=== PATIENT | female | born 1945 | race Caucasian/White ===

== ENCOUNTER 2018-03-24 13:36 | Inpatient (IN) | payer MEDICAID ==
[~2018-03-24] VITALS: Ht 162.6 cm; Wt 81.6 kg
[2018-03-24] MEDS ORDERED: ACETAMINOPHEN 325MG TABLET PO ONE (14:45)
[2018-03-24] MEDS ORDERED: MORPHINE SULFATE 4 MG/ML CPJ (NOT FOR IM USE) IV ONE (16:45)
[2018-03-24 17:37] LABS: CHLORIDE 103 mEq/L (98-107); HEMOGLOBIN. 7.3 g/dL (12.0-16.0); MEAN CORPUSCULAR HEMOGLOBIN 29.7 pg (28.0-32.0); MEAN CORPUSCULAR VOLUME 89.6 fL (81.0-99.0); MEAN PLATELET VOLUME 7.3 fl (7.4-10.4); PLATELET 269 x1000/uL (130-400); PROTHROMBIN TIME 10.5 sec (9.1-11.1); RED BLOOD CELL COUNT 2.46 mill/uL (4.2-5.4); RED CELL DISTRIBUTION WIDTH 14.5 % (11.6-14.6)
[2018-03-24 17:52] LABS: PLATELET ESTIMATE NORMAL
[2018-03-24] MEDS ORDERED: IPRATROPIUM/ALBUTEROL 0.5-3(2.5)MG/3ML NEB INH PRN (18:45)
[2018-03-24] MEDS ORDERED: MORPHINE SULFATE 2 MG/ML CPJ (NOT FOR IM USE) IV PRN (18:45)
[2018-03-24] MEDS ORDERED: GUAIFENESIN 200MG/10ML SUGAR FREE UDC PO PRN (18:45)
[2018-03-24] MEDS ORDERED: NA PHOS,M-B/NA PHOS,DI-BA ENEMA 118ML PR PRN (18:45)
[2018-03-24] MEDS ORDERED: TRAMADOL 50MG TABLET PO PRN (18:45)
[2018-03-24] MEDS ORDERED: DEXTROSE 50% WATER 50ML SYRINGE IV PRN (18:45)
[2018-03-24] MEDS ORDERED: ONDANSETRON HCL 4MG/2ML INJ IV PRN (18:45)
[2018-03-24] MEDS ORDERED: MAGNESIUM/ALUMINUM HYDROXIDE/SIMETHICONE 30ML UDC PO PRN (18:45)
[2018-03-24] MEDS ORDERED: SODIUM POLYSTYRENE SULFONATE 15 G/60 ML BOT PO NR (18:45)
[2018-03-24] MEDS ORDERED: DOCUSATE SODIUM 100MG CAPSULE PO PRN (18:45)
[2018-03-24 19:31] LABS: FOLIC ACID (FOLATE) SERUM 10.5 ng/mL (>5.38)
[2018-03-24 20:00] VITALS: BP 167/49
[2018-03-24] MEDS ORDERED: ZOLPIDEM TARTRATE 5MG TABLET PO PRN (21:00)
[2018-03-24] MEDS ORDERED: ENOXAPARIN 30MG/0.3ML SYR SUBCUT SCH (21:00)
[2018-03-24] MEDS: BLOOD SUGAR DIAGNOSTIC STRIP TEST SCH (21:00)
[2018-03-24 22:00] VITALS: BP 175/87
[2018-03-24] MEDS: METOPROLOL TARTRATE 25MG TABLET PO SCH (22:22)
[2018-03-24] MEDS: INSULIN LISPRO 100 UNITS/ML SUBCUT SCH (22:34)
[2018-03-25] VITALS (10 sets, daily range): BP systolic 126–163; BP diastolic 36–63
[2018-03-25] MEDS: LORAZEPAM 0.5MG TABLET PO PRN
[2018-03-25] MEDS: MORPHINE SULFATE 4 MG/ML CPJ (NOT FOR IM USE) IV PRN ×2 (00:20→06:37)
[2018-03-25] MEDS: PANTOPRAZOLE SODIUM 40 MG/VIAL IV SCH ×2 (06:40→17:00)
[2018-03-25] MEDS: BLOOD SUGAR DIAGNOSTIC STRIP TEST SCH ×4 (06:41→20:37)
[2018-03-25] MEDS: INSULIN LISPRO 100 UNITS/ML SUBCUT SCH ×4 (06:41→20:39)
[2018-03-25] MEDS ORDERED: PNEUMOCOCCAL 23-VAL P-SAC VAC 0.5 ML IM ONE (08:00)
[2018-03-25] MEDS: METOPROLOL TARTRATE 25MG TABLET PO SCH ×2 (09:00→20:36)
[2018-03-25] MEDS: FUROSEMIDE 20MG TABLET PO SCH ×2 (09:00→20:37)
[2018-03-25] MEDS ORDERED: INFLUENZA VIRUS VACCINE 0.5ML SYR IM ONE (10:00)
[2018-03-25] MEDS ORDERED: DOCU-150 MT (11:26)
[2018-03-25] MEDS ORDERED: GABA-531 PO (11:26)
[2018-03-25] MEDS ORDERED: BUME1TAB4 MT (11:26)
[2018-03-25] MEDS ORDERED: CHOL100062 MT (11:26)
[2018-03-25] MEDS ORDERED: AMLO10TA80 MT (11:26)
[2018-03-25] MEDS ORDERED: FERR325T6 MT (11:26)
[2018-03-25] MEDS ORDERED: LEVO75TA7 MT (11:26)
[2018-03-25] MEDS ORDERED: MELA5TAB19 MT (11:26)
[2018-03-25] MEDS ORDERED: ALLO100T MT (11:26)
[2018-03-25] MEDS ORDERED: LOSA50TA20 MT (11:26)
[2018-03-25] MEDS ORDERED: SIMV20TA6 MT (11:26)
[2018-03-25] MEDS ORDERED: HYDR-4135 MT (11:26)
[2018-03-25] MEDS ORDERED: CLON0.1T14 MT (11:26)
[2018-03-25] MEDS ORDERED: CITA10TA9 MT (11:26)
[2018-03-25 12:27] LABS: BASOPHILS % 0.4 % (0.0-2.0); EOSINOPHILS % 0.3 % (0.0-5.0); LYMPHOCYTES % 9.1 % (20.0-50.0); MEAN CORPUSCULAR HEMOGLOBIN 30.1 pg (28.0-32.0); MEAN PLATELET VOLUME 7.3 fl (7.4-10.4); MONOCYTES % 6.7 % (2.0-8.0); NEUTROPHILS % 83.5 % (40.0-76.0); PLATELET 245 x1000/uL (130-400); RED BLOOD CELL COUNT 2.09 mill/uL (4.2-5.4); RED CELL DISTRIBUTION WIDTH 14.7 % (11.6-14.6)
[2018-03-25 12:31] LABS: HEMATOCRIT. 18.8 % (36.0-48.0); HEMOGLOBIN. 6.3 g/dL (12.0-16.0)
[2018-03-25 12:36] LABS: CHLORIDE 105 mEq/L (98-107)
[2018-03-25] MEDS: CLONIDINE 0.1MG TABLET PO PRN (17:21)
[2018-03-25] MEDS: ENOXAPARIN 40MG/0.4ML SYR SUBCUT SCH (20:36)
[2018-03-25 22:16] LABS: HEMOGLOBIN 7.6 g/dL (12.0-16.0)
[2018-03-26] VITALS (7 sets, daily range): BP systolic 113–189; BP diastolic 47–76
[2018-03-26] MEDS: PANTOPRAZOLE SODIUM 40 MG/VIAL IV SCH ×2 (06:00→17:50)
[2018-03-26] MEDS: BLOOD SUGAR DIAGNOSTIC STRIP TEST SCH ×4 (06:37→20:26)
[2018-03-26] MEDS: FUROSEMIDE 20MG TABLET PO SCH ×2 (09:05→20:21)
[2018-03-26] MEDS: METOPROLOL TARTRATE 25MG TABLET PO SCH ×2 (09:05→20:22)
[2018-03-26] MEDS: LORAZEPAM 0.5MG TABLET PO PRN (09:11)
[2018-03-26] MEDS: INSULIN LISPRO 100 UNITS/ML SUBCUT SCH ×4 (09:17→20:26)
[2018-03-26] MEDS: CLONIDINE 0.1MG TABLET PO PRN (14:53)
[2018-03-26] MEDS: ENOXAPARIN 40MG/0.4ML SYR SUBCUT SCH (20:22)
[2018-03-27] VITALS (7 sets, daily range): BP systolic 152–179; BP diastolic 45–55
[2018-03-27] MEDS: PANTOPRAZOLE SODIUM 40 MG/VIAL IV SCH ×2 (06:00→17:41)
[2018-03-27] MEDS: BLOOD SUGAR DIAGNOSTIC STRIP TEST SCH ×4 (06:42→21:00)
[2018-03-27] MEDS: INSULIN LISPRO 100 UNITS/ML SUBCUT SCH ×4 (07:50→21:00)
[2018-03-27] MEDS: METOPROLOL TARTRATE 25MG TABLET PO SCH ×2 (09:00→20:44)
[2018-03-27] MEDS: FUROSEMIDE 20MG TABLET PO SCH ×2 (09:00→20:44)
[2018-03-27] MEDS: ACETAMINOPHEN 325MG TABLET PO PRN (09:38)
[2018-03-27 10:25] LABS: MEAN CORPUSCULAR HEMOGLOBIN 29.9 pg (28.0-32.0); MEAN CORPUSCULAR VOLUME 90.1 fL (81.0-99.0); PLATELET 235 x1000/uL (130-400); RED BLOOD CELL COUNT 2.09 mill/uL (4.2-5.4); RED CELL DISTRIBUTION WIDTH 14.7 % (11.6-14.6)
[2018-03-27 10:30] LABS: HEMATOCRIT 18.8 % (36.0-48.0); HEMOGLOBIN 6.2 g/dL (12.0-16.0)
[2018-03-27 10:33] LABS: PROTHROMBIN TIME 10.4 sec (9.1-11.1)
[2018-03-27 10:38] LABS: CHLORIDE 106 mEq/L (98-107)
[2018-03-27] MEDS ORDERED: ACETAMINOPHEN 650MG SUPP PR PRN ×2 (13:45→14:00)
[2018-03-27] MEDS: ENOXAPARIN 40MG/0.4ML SYR SUBCUT SCH (21:00)
[2018-03-27] MEDS: CLONIDINE 0.1MG TABLET PO PRN (23:10)
[2018-03-27] MEDS: MORPHINE SULFATE 4 MG/ML CPJ (NOT FOR IM USE) IV PRN (23:11)
[2018-03-28] VITALS (12 sets, daily range): BP systolic 118–188; BP diastolic 42–87
[2018-03-28] MEDS: BLOOD SUGAR DIAGNOSTIC STRIP TEST SCH ×4 (07:20→21:12)
[2018-03-28] MEDS: INSULIN LISPRO 100 UNITS/ML SUBCUT SCH ×4 (07:50→21:00)
[2018-03-28] MEDS: CLONIDINE 0.1MG TABLET PO PRN ×2 (08:30→23:47)
[2018-03-28] MEDS: METOPROLOL TARTRATE 25MG TABLET PO SCH ×2 (09:00→20:50)
[2018-03-28] MEDS: FUROSEMIDE 20MG TABLET PO SCH ×3 (09:00→20:51)
[2018-03-28] MEDS: NITROGLYCERIN 0.4MG/HR PATCH TOP SCH (10:17)
[2018-03-28] MEDS: MORPHINE SULFATE 4 MG/ML CPJ (NOT FOR IM USE) IV PRN (11:56)
[2018-03-28] MEDS: PANTOPRAZOLE SODIUM 40 MG/VIAL IV SCH ×2 (12:08→20:55)
[2018-03-28 13:14] LABS: HEMOGLOBIN 9.3 g/dL (12.0-16.0)
[2018-03-28] MEDS: ENOXAPARIN 40MG/0.4ML SYR SUBCUT SCH (20:54)
[2018-03-29] VITALS: BP 162/65
[2018-03-29 04:00] VITALS: BP 175/66
[2018-03-29] MEDS: PANTOPRAZOLE SODIUM 40 MG/VIAL IV SCH ×2 (06:31→17:51)
[2018-03-29] MEDS: CLONIDINE 0.1MG TABLET PO PRN (06:31)
[2018-03-29] MEDS: BLOOD SUGAR DIAGNOSTIC STRIP TEST SCH ×4 (06:32→21:00)
[2018-03-29] MEDS: INSULIN LISPRO 100 UNITS/ML SUBCUT SCH ×4 (07:50→21:00)
[2018-03-29 08:00] VITALS: BP 173/53
[2018-03-29] MEDS: METOPROLOL TARTRATE 25MG TABLET PO SCH ×2 (08:37→22:30)
[2018-03-29] MEDS: NITROGLYCERIN 0.4MG/HR PATCH TOP SCH (09:06)
[2018-03-29] MEDS: FUROSEMIDE 20MG TABLET PO SCH ×2 (11:27→22:30)
[2018-03-29] MEDS: HYDRALAZINE HCL 50MG TABLET PO SCH ×2 (11:28→22:29)
[2018-03-29 12:00] VITALS: BP 167/55
[2018-03-29] MEDS ORDERED: HYDRALAZINE HCL 50MG TABLET PO SCH (14:00)
[2018-03-29] MEDS ORDERED: VANCOMYCIN HCL 500 MG/VIAL ONE ×2 (15:57→16:38)
[2018-03-29 16:00] VITALS: BP 146/53
[2018-03-29 20:00] VITALS: BP 170/48
[2018-03-29] MEDS: ENOXAPARIN 40MG/0.4ML SYR SUBCUT SCH (22:32)
[2018-03-30] VITALS: BP 129/48
[2018-03-30 04:00] VITALS: BP 162/52
[2018-03-30] MEDS: PANTOPRAZOLE SODIUM 40 MG/VIAL IV SCH ×2 (06:00→18:35)
[2018-03-30] MEDS: HYDRALAZINE HCL 50MG TABLET PO SCH ×3 (06:15→20:47)
[2018-03-30] MEDS: BLOOD SUGAR DIAGNOSTIC STRIP TEST SCH ×3 (06:20→17:49)
[2018-03-30] MEDS: INSULIN LISPRO 100 UNITS/ML SUBCUT SCH ×3 (07:50→17:50)
[2018-03-30 08:00] VITALS: BP 165/57
[2018-03-30] MEDS: METOPROLOL TARTRATE 25MG TABLET PO SCH ×2 (08:54→20:47)
[2018-03-30] MEDS: NITROGLYCERIN 0.4MG/HR PATCH TOP SCH (09:01)
[2018-03-30] MEDS: FUROSEMIDE 20MG TABLET PO SCH ×2 (09:01→20:47)
[2018-03-30 09:08] LABS: BASOPHILS % 0.7 % (0.0-2.0); EOSINOPHILS % 1.6 % (0.0-5.0); HEMATOCRIT. 25.9 % (36.0-48.0); HEMOGLOBIN. 8.9 g/dL (12.0-16.0); LYMPHOCYTES % 10.4 % (20.0-50.0); MEAN CORPUSCULAR HEMOGLOBIN 30.1 pg (28.0-32.0); MEAN CORPUSCULAR VOLUME 87.8 fL (81.0-99.0); MEAN PLATELET VOLUME 6.9 fl (7.4-10.4); MONOCYTES % 6.4 % (2.0-8.0); NEUTROPHILS % 80.9 % (40.0-76.0); PLATELET 269 x1000/uL (130-400); RED BLOOD CELL COUNT 2.94 mill/uL (4.2-5.4)
[2018-03-30 09:26] LABS: CHLORIDE 103 mEq/L (98-107)
[2018-03-30 12:00] VITALS: BP 161/62
[2018-03-30 16:00] VITALS: BP 143/52
[2018-03-30 20:00] VITALS: BP 166/49
[2018-03-30] MEDS: ENOXAPARIN 40MG/0.4ML SYR SUBCUT SCH (20:46)
[2018-03-30] MEDS: ZOLPIDEM TARTRATE 5MG TABLET PO PRN (20:47)
[2018-03-31] VITALS: BP 151/52
[2018-03-31 04:00] VITALS: BP 162/50
[2018-03-31] MEDS: HYDRALAZINE HCL 50MG TABLET PO SCH ×3 (06:02→22:06)
[2018-03-31] MEDS: PANTOPRAZOLE SODIUM 40 MG/VIAL IV SCH ×2 (06:02→18:40)
[2018-03-31] MEDS: BLOOD SUGAR DIAGNOSTIC STRIP TEST SCH ×4 (06:20→21:00)
[2018-03-31 07:02] LABS: BASOPHILS % 0.4 % (0.0-2.0); EOSINOPHILS % 2.7 % (0.0-5.0); HEMATOCRIT. 25.5 % (36.0-48.0); HEMOGLOBIN. 8.8 g/dL (12.0-16.0); LYMPHOCYTES % 12.8 % (20.0-50.0); MEAN CORPUSCULAR HEMOGLOBIN 30.1 pg (28.0-32.0); MEAN CORPUSCULAR VOLUME 87.8 fL (81.0-99.0); MEAN PLATELET VOLUME 7.1 fl (7.4-10.4); MONOCYTES % 8.6 % (2.0-8.0); NEUTROPHILS % 75.5 % (40.0-76.0); PLATELET 286 x1000/uL (130-400); RED BLOOD CELL COUNT 2.91 mill/uL (4.2-5.4); RED CELL DISTRIBUTION WIDTH 15.5 % (11.6-14.6)
[2018-03-31] MEDS: INSULIN LISPRO 100 UNITS/ML SUBCUT SCH ×4 (07:32→22:08)
[2018-03-31] MEDS ORDERED: BACITRACIN 50,000 UNITS/VIAL ONE (07:44)
[2018-03-31] MEDS ORDERED: NORMAL SALINE 0.9% 10 ML SYR ONE (07:44)
[2018-03-31] MEDS ORDERED: VANCOMYCIN HCL 500 MG/VIAL ONE (07:44)
[2018-03-31 08:00] VITALS: BP 142/52
[2018-03-31] MEDS: FUROSEMIDE 20MG TABLET PO SCH ×2 (08:45→20:56)
[2018-03-31] MEDS: NITROGLYCERIN 0.4MG/HR PATCH TOP SCH (08:45)
[2018-03-31] MEDS: METOPROLOL TARTRATE 25MG TABLET PO SCH ×2 (08:45→20:55)
[2018-03-31] MEDS ORDERED: ROCURONIUM BROMIDE 10MG/ML VIAL 5ML IV ONE (08:54)
[2018-03-31] MEDS ORDERED: FENTANYL CITRATE/PF 50MCG/ML 5ML VIAL ONE (08:55)
[2018-03-31] MEDS ORDERED: MIDAZOLAM HCL 2 MG/2 ML VIAL ONE (08:55)
[2018-03-31] MEDS ORDERED: ETOMIDATE 2MG/ML 10ML VIAL IV ONE (08:55)
[2018-03-31] MEDS ORDERED: CEFAZOLIN SODIUM 1000MG/VIAL ONE (08:55)
[2018-03-31] MEDS ORDERED: EPHEDRINE SULFATE 50MG/ML VIAL ONE (09:35)
[2018-03-31] MEDS ORDERED: ONDANSETRON HCL 4MG/2ML INJ IV PRN (10:15)
[2018-03-31] MEDS ORDERED: FENTANYL CITRATE/PF 50MCG/ML 2ML VIAL IV PRN (10:15)
[2018-03-31] MEDS ORDERED: GLYCOPYRROLATE 0.2 MG/ML 2ML VIAL ONE (11:09)
[2018-03-31] MEDS ORDERED: PHENYLEPHRINE HCL 10 MG/ML 1ML (IV VIAL) IV ONE (11:09)
[2018-03-31] MEDS ORDERED: NEOSTIGMINE METHYLSULFATE 1MG/ML 10 ML VIAL ONE (11:10)
[2018-03-31] MEDS ORDERED: FENTANYL CITRATE/PF 50MCG/ML 2ML VIAL ONE ×2 (11:11→11:20)
[2018-03-31 12:00] VITALS: BP 140/60
[2018-03-31 16:00] VITALS: BP 152/51
[2018-03-31] MEDS: CEFAZOLIN 1000MG PREMIX 50 ML IV SCH (16:35)
[2018-03-31 20:00] VITALS: BP 121/49
[2018-03-31] MEDS: ENOXAPARIN 40MG/0.4ML SYR SUBCUT SCH (20:56)
[2018-03-31] MEDS: ZOLPIDEM TARTRATE 5MG TABLET PO PRN (22:06)
[2018-04-01] VITALS (8 sets, daily range): BP systolic 103–139; BP diastolic 33–51
[2018-04-01] MEDS: CEFAZOLIN 1000MG PREMIX 50 ML IV SCH (00:42)
[2018-04-01] MEDS: ACETAMINOPHEN 325MG TABLET PO PRN (06:39)
[2018-04-01] MEDS: PANTOPRAZOLE SODIUM 40 MG/VIAL IV SCH ×2 (06:40→17:40)
[2018-04-01] MEDS: HYDRALAZINE HCL 50MG TABLET PO SCH ×3 (06:40→21:40)
[2018-04-01] MEDS: BLOOD SUGAR DIAGNOSTIC STRIP TEST SCH ×4 (07:18→20:48)
[2018-04-01] MEDS: FUROSEMIDE 20MG TABLET PO SCH ×2 (08:28→20:47)
[2018-04-01] MEDS: NITROGLYCERIN 0.4MG/HR PATCH TOP SCH (08:28)
[2018-04-01] MEDS: METOPROLOL TARTRATE 25MG TABLET PO SCH ×2 (08:28→20:48)
[2018-04-01] MEDS: INSULIN LISPRO 100 UNITS/ML SUBCUT SCH ×4 (08:32→20:43)
[2018-04-01 11:48] LABS: MEAN CORPUSCULAR HEMOGLOBIN 29.8 pg (28.0-32.0); MEAN PLATELET VOLUME 7.4 fl (7.4-10.4); PLATELET 244 x1000/uL (130-400); RED BLOOD CELL COUNT 2.13 mill/uL (4.2-5.4); RED CELL DISTRIBUTION WIDTH 15.5 % (11.6-14.6)
[2018-04-01 11:57] LABS: HEMATOCRIT. 18.7 % (36.0-48.0); HEMOGLOBIN. 6.3 g/dL (12.0-16.0)
[2018-04-01 12:54] LABS: HEMATOCRIT 18.7 % (36.0-48.0); HEMOGLOBIN 6.4 g/dL (12.0-16.0)
[2018-04-01 12:59] LABS: PLATELET ESTIMATE NORMAL
[2018-04-01] MEDS: ENOXAPARIN 40MG/0.4ML SYR SUBCUT SCH (20:49)
[2018-04-01 21:47] LABS: HEMATOCRIT 21.2 % (36.0-48.0); HEMOGLOBIN 7.2 g/dL (12.0-16.0)
[2018-04-01 21:51] LABS: INR 1.1; PROTHROMBIN TIME 10.7 sec (9.1-11.1)
[2018-04-02] VITALS (10 sets, daily range): BP systolic 106–168; BP diastolic 42–57
[2018-04-02] MEDS: ZOLPIDEM TARTRATE 5MG TABLET PO PRN ×2 (00:08→20:40)
[2018-04-02] MEDS: PANTOPRAZOLE SODIUM 40 MG/VIAL IV SCH ×2 (05:16→17:04)
[2018-04-02] MEDS: HYDRALAZINE HCL 50MG TABLET PO SCH ×3 (05:16→21:13)
[2018-04-02] MEDS: CLONIDINE 0.1MG TABLET PO PRN (05:17)
[2018-04-02] MEDS: BLOOD SUGAR DIAGNOSTIC STRIP TEST SCH ×4 (06:22→20:56)
[2018-04-02] MEDS: INSULIN LISPRO 100 UNITS/ML SUBCUT SCH ×4 (07:28→20:56)
[2018-04-02 07:38] LABS: HEMOGLOBIN 8.2 g/dL (12.0-16.0)
[2018-04-02 07:50] LABS: PROTHROMBIN TIME 10.1 sec (9.1-11.1)
[2018-04-02] MEDS: FUROSEMIDE 20MG TABLET PO SCH ×2 (08:22→20:40)
[2018-04-02] MEDS: METOPROLOL TARTRATE 25MG TABLET PO SCH ×2 (08:22→20:40)
[2018-04-02] MEDS: NITROGLYCERIN 0.4MG/HR PATCH TOP SCH (08:24)
[2018-04-02] MEDS: ACETAMINOPHEN 325MG TABLET PO PRN (16:05)
[2018-04-02] MEDS: ENOXAPARIN 40MG/0.4ML SYR SUBCUT SCH (20:40)
[2018-04-03] VITALS: BP 146/48
[2018-04-03 04:00] VITALS: BP 130/47
[2018-04-03] MEDS: BLOOD SUGAR DIAGNOSTIC STRIP TEST SCH ×3 (06:03→16:26)
[2018-04-03] MEDS: PANTOPRAZOLE SODIUM 40 MG/VIAL IV SCH ×2 (06:03→17:10)
[2018-04-03] MEDS: HYDRALAZINE HCL 50MG TABLET PO SCH ×2 (06:03→13:56)
[2018-04-03] MEDS: INSULIN LISPRO 100 UNITS/ML SUBCUT SCH ×3 (06:27→17:10)
[2018-04-03 08:00] VITALS: BP 144/54
[2018-04-03] MEDS: FUROSEMIDE 20MG TABLET PO SCH (09:14)
[2018-04-03] MEDS: METOPROLOL TARTRATE 25MG TABLET PO SCH (09:14)
[2018-04-03] MEDS: NITROGLYCERIN 0.4MG/HR PATCH TOP SCH (09:14)
[2018-04-03] MEDS: ACETAMINOPHEN 325MG TABLET PO PRN (10:16)
[2018-04-03 12:00] VITALS: BP 138/57
[2018-04-03 16:00] VITALS: BP 144/44
[2018-04-03 17:48] VITALS: BP 144/44
== END 2018-04-03 20:00 | DRG 308 ==
LOC: ER 13:36 → 6EST 17:33 → ENRESERV 19:08 → EDBEDREQ 20:48 → EDBEDREQTM 20:49
PROVIDERS: ADMIT Internal Medicine; ATTEND Internal Medicine
PROC: 30233N1 Transfusion of Nonautologous Red Blood Cells into Peripheral Vein, Percutaneous Approach (ICD-10-PCS; 2018-03-25)
PROC: 0QSB04Z Reposition Right Lower Femur with Internal Fixation Device, Open Approach (ICD-10-PCS; principal; 2018-03-31 08:30)
DX: S72.341A Displaced spiral fracture of shaft of right femur, initial encounter for closed fracture (principal); N17.0 Acute kidney failure with tubular necrosis; E43 Unspecified severe protein-calorie malnutrition; I11.9 Hypertensive heart disease without heart failure; E87.5 Hyperkalemia; E83.51 Hypocalcemia; D62 Acute posthemorrhagic anemia; E11.9 Type 2 diabetes mellitus without complications; I35.0 Nonrheumatic aortic (valve) stenosis; I45.10 Unspecified right bundle-branch block; M21.00 Valgus deformity, not elsewhere classified, unspecified site; Z53.8 Procedure and treatment not carried out for other reasons; Z79.4 Long term (current) use of insulin; W01.0XXA Fall on same level from slipping, tripping and stumbling without subsequent striking against object, initial encounter; Y93.89 Activity, other specified; Y92.89 Other specified places as the place of occurrence of the external cause; Y99.8 Other external cause status
CPT/HCPCS: 36415; 71045; 73502; 73552; 73560; 73590; 76770; 80048; 80053; 80061; 82607; 82746; 82962; 83036; 83540; 83550; 85014; 85018; 85025; 85027; 85049; 85384; 85610; 86850; 86900; 86920; 87040; 93005; 93306; 93970; 96374; 97162; 97530; 99285; A4216; A6261; C1713; C1769; C1893; C9113; J0690; J1650; J1815; J2250; J2270; J2370; J2405; J2710; J3010; J3370; J3490; J7030; J7040; P9016